=== PATIENT | male | born 1965 | race Caucasian/White ===

== ENCOUNTER 2020-01-27 10:22 | Emergency (ER) | payer OTHER, SELFPAY ==
[2020-01-27 10:36] VITALS: BP 132/88; PULSE 86; RESP 20; TEMP 36.8; O2SAT 99
--- NOTE | 2020-01-27 10:46 | ED.NAVMDI ---
HPI - Nausea/Vomiting/Diarrhea General Chief complaint: Nausea/Vomiting/Diarrhea Stated complaint: vomiting Time Seen by Provider: 01/27/20 10:28 Source: patient Mode of arrival: ambulatory Limitations: no limitations History of Present Illness HPI Narrative: 54-year-old male presents to urgent care with complaints of nausea, vomiting, chills and weakness since yesterday. Patient reports that his symptoms have been improving. Patient reports he has been able to keep fluids down with no difficulties. Patient was able to eat a banana with no vomiting. Patient denies sick contacts. Patient denies recent travel. Patient does report history of gastric bypass surgery. Patient denies cough, shortness of breath, wheezing, fever, diarrhea, sore throat or ear pain. MD elicited complaint: nausea and vomiting Onset (ago): day(s) (1) Associated abdominal pain: No Location of pain: none Exacerbating factors: none Relieving factors: none Related Data Home Medications Medication Instructions Recorded Confirmed fentanyl 1 patch TRANSDERMAL Q72H 01/27/20 01/27/20 lidocaine 1 patch TOPICAL DAILY 01/27/20 01/27/20 methocarbamol 500 mg PO TID 01/27/20 01/27/20 nortriptyline 50 mg PO DAILY 01/27/20 01/27/20 Allergies Allergy/AdvReac Type Severity Reaction Status Date / Time Penicillins Allergy Unknown Difficulty Verified 01/27/20 10:42 Breathing Review of Systems Review of Systems: All systems reviewed & are unremarkable except as noted in HPI and below Constitutional: Constitutional: Reports chills, Denies fever(s) and Reports weakness ENT: Denies vertigo, Denies dizziness, Denies nasal congestion and Denies sore throat Cardiovascular: Cardiovascular: Denies chest pain, Denies rapid heart rate and Denies radiating jaw, neck or arm pain Respiratory: Respiratory: Denies chest congestion, Denies cough, Denies dyspnea and Denies wheezing Gastrointestinal: Gastrointestinal: Denies abdominal pain, Denies bloating, Denies constipation, Denies diarrhea, Reports nausea and Reports vomiting Integumentary/Breasts: Skin/Breast: Denies rash Neurologic: Denies confusion, Denies dizziness, Denies syncope and Denies numbness PMF Past Medical History Medical History (Updated 01/27/20 @ 11:08 by Tonia Chahal APRN) Gallbladder attack Tonsillectomy planned Trigger finger Surgical History Surgical History (Updated 01/27/20 @ 10:50 by Tonia Chahal APRN) Gastric bypass status for obesity Family History Family History Father Family history of arthritis Family history of lung cancer Sibling Family history of arthritis Family history of malignant neoplasm of thyroid Social History Social History (Updated 01/27/20 @ 10:49 by Tonia Chahal APRN) Smoking status: Former smoker Smokeless tobacco user: chewing tobacco Smoking end date: 05/05/99 Alcohol intake: never Exam Const: General: healthy appearing, no acute distress and alert; No confusion Nutritional Appearance: well nourished Orientation/consciousness: patient oriented x3 Limitations: no limitations and No altered mental status HENMT: Head: normal to inspection Ears: TM abnormal General nose exam: Normal external nose present Mouth: Yes moist mucous membranes Throat: uvula midline Neck: Neck: normal visual inspection Resp: Effort & Inspection: normal respiratory effort, not labored, no retractions and not tachypneic Auscultation: clear to auscultation bilaterally Cardio: Rate: regular rate, not bradycardic and not tachycardic Rhythm: regular rhythm GI: GI Palp: Yes Soft to palpation, No Tenderness to palpation present (GI) and No Rebound tenderness present Auscultation: normal bowel sounds Skin: General skin exam: normal color and no jaundice Rashes: no rashes Wounds: no wounds Neuro: General: patient oriented x3, moves all extremities and no meningeal signs Extrem: General: n
[2020-01-27] MEDS: ONDANSETRON HCL ODT 4 MG TABLET PO (10:49)
== END 2020-01-27 11:16 | disposition home or self-care (01) ==
PROVIDERS: Emergency Provider Nurse Practitioner Family
DX: K52.9 Noninfective gastroenteritis and colitis, unspecified (principal); Z87.891 Personal history of nicotine dependence; Z98.84 Bariatric surgery status
CPT/HCPCS: 99213; A9270; G0463